=== PATIENT | male | born 1985 | race Caucasian/White ===

== ENCOUNTER → 2018-02-09 09:55 | Outpatient (CLI) | payer SELFPAY ==
[2018-02-09 10:42] LABS: T4 Free Direct 1.01 ng/dL (0.76-1.46); Thyroid Stim Hormone (TSH) 1.16 uIU/mL (0.358-3.74)
== END ==
PROVIDERS: Visit Provider Otolaryngology
DX: R22.1 Localized swelling, mass and lump, neck (principal)
CPT/HCPCS: 36415; 84439; 84443

== ENCOUNTER 2018-05-02 06:02 | Day surgery (SDC) | payer SELFPAY ==
[2018-04-28 10:04] LABS: Absolute Lymphocyte Count 1.77 X10^3/ul (0.83-4.51); Absolute Neutrophil Count 6.1 X10^3/uL (2.0-7.7); Basophil# 0.02 X10^3/uL; Basophil% 0.2 % (0-1); Eosinophils% 2.2 % (0-5); Hematocrit 44.2 % (40-54); Hemoglobin 15.4 g/dl (13.0-16.5); Lymphocyte # 1.77 X10^3/ul (4.0); Lymphocyte % 19.6 % (19-41); Mean Corp Hgb Conc 34.8 g/gl (32-36); Mean Corpuscular Hgb 30.3 pg (27.0-32.0); Mean Corpuscular Volume 86.8 fL (80-94); Mean Platelet Vol. 10.4 fl (6.2-12.0); Monocyte# 0.88 X10^3/uL; Monocyte% 9.7 % (0-10); Neutrophil # 6.14 X10^3/uL (2.7-7.7); Platelet Count 201 K/mm3 (150-450); RBC Distribution Width CV 12.2 % (11.6-14.6); RBC Distribution Width SD 38.3 fl (35.1-43.9); Red Blood Count 5.09 M/mm3 (4.6-6.2)
[2018-04-28 10:13] LABS: POSITIVE COUNT NO; POSITIVE DIFFERENTIAL NO; POSITIVE MORPHOLOGY NO
[2018-04-28 10:26] LABS: Anion Gap 4 (5-15); BUN 16 mg/dL (7-18); BUN/Creat Ratio 16.1 RATIO (10-20); Calcium,Total 8.7 mg/dL (8.5-10.1); Chloride 107 mmol/L (98-107); Creatinine, Serum 0.99 mg/dL (0.70-1.30); EST Glomerular Filtration Rate 93 mL/min (>60); Est Glom Filt Rate - Afr Amer 112 mL/min (>60); Glucose 88 mg/dL (74-106); Potassium 4.6 mmol/L (3.5-5.1); Sodium Level 139 mmol/L (136-145)
--- NOTE | 2018-05-02 | THYROID_PTH ---
PATIENT: ERWIN SURESH [place] [facility] [place][id number] AGE/SX: 32/M ROOM: RE05/02/[address]: Dr. Jesús Thao MD : 1985 BED: DIS: 05/02/2018 SPEC #: [id number] RECD: 05/02/18 14:33 STATUS: STEPHANIE MICKEY #: [id number] SILVIA: 05/02/18 00:[address]: Jesús Thao DEPT: SURGICAL PATHOLOGY RECD BY: Guy Day ENTERED: 05/02/18 14:33 SP TYPE: THYROID OTHR DR: No Primary Care Phys Tissues: Thyroid gland, NOS Procedures: Surgery Specimen Level V HEADER OPERATION: Thyroid lobectomy PRE-OP DIAGNOSIS: Right thyroid mass TISSUE SUBMITTED: Right thyroid lobe MICROSCOPIC DIAGNOSIS Right lobe of thyroid, lobectomy: Follicular adenoma with sclerosis. Background of colloid nodules. See comment. AM:he 05/11/18 COMMENT There is no definite evidence of capsular or lymphovascular invasion identified. This case was seen in consultation with Dr. Torres of [facility]. The case was peer reviewed at [facility]. Please see complete report in patient's EMR. Immunohistochemistry ([id number]) supports the above diagnosis. Case has been reviewed in consultation with Dr. Lancaster who concurs with the above diagnosis. IDC:SJ MICROSCOPIC DESCRIPTION Slides are reviewed. GROSS DESCRIPTION Received in fixative is one container labeled with the patient's name and designated right thyroid lobe. The specimen consists of a thyroid lobectomy specimen weighing 23 gm and measuring 5.5 x 3.5 x 3 cm. No external parathyroid tissue is identified. The resection margin appears to be ragged. The specimen is inked as follows: anterior surface - black, posterior surface - blue and resection margin - yellow. Serial sections reveal a multiloculated predominantly cystic and focal area of solid lesion in the superior middle portion of the thyroid lobe measuring 3 cm in diameter. Driller Hand sections are submitted in 12 cassettes as follows: 1-10 - entire lesion, 11-12 - senior customer service representative sections from the uninvolved portion. About 90% of the specimen is submitted. / JUAN M:he 05/03/18 TC:1 CPT: 33848
--- NOTE | 2018-05-02 | IMM_PTH ---
PATIENT: ERWIN SURESH LOC: [facility] – [place] U#:[id number] AGE/SX: 32/M ROOM: RE05/02/[address]: Dr. Jesús Thao MD : 1985 BED: DIS: 05/02/2018 SPEC #: [id number] RECD: 05/04/18 13:10 STATUS: STEPHANIE AREVALO #: [id number] SILVIA: 05/02/18 00:[address]: Jesús Thao DEPT: IMMUNOHISTOCHEMISTRY RECD BY: Telma Carvajal ENTERED: 05/04/18 13:12 SP TYPE: IMMUNO OTHR DR: No Primary Care Phys Tissues: Thyroid gland, NOS Procedures: HBME (initial) CD56 (add) CK19 (add) GAL-3 (add) HBME (add) TTF1 (add) PHYSICIAN & INSTITUTION [place] [id number] SPECIMEN INFORMATION: Tissue Source: Right thyroid lobe Clinical Info: Right thyroid mass Specimen Number: [id number] #4, 8, 9 & 10 CPT code: 17751, 62143 x19 METHODOLOGY: Deparaffinized sections of prefer/formalin-fixed tissue or PAP/DQ stained slides are incubated with monoclonal/polyclonal antibodies/oligonucleotide probes. Localization is made via biotin free immunoperoxidase method. Appropriate controls are performed and reacted as expected. Results on target cell population are indicated in the following table: RESULTS: ANTIBODY / CLONE RESULT Block 4 HBME1 (HBME-1) positive CK19 (A53-B/A2.26) negative GAL3 (9C4) negative CD56 (123C3.D5) positive TTF-1 (8G7G3/1) positive Block 8 HBME1 (HBME-1) positive CK19 (A53-B/A2.26) negative GAL3 (9C4) positive CD56 (123C3.D5) positive TTF-1 (8G7G3/1) positive Block 9 HBME1 (HBME-1) positive CK19 (A53-B/A2.26) negative GAL3 (9C4) negative CD56 (123C3.D5) positive TTF-1 (8G7G3/1) positive Block 10 HBME1 (HBME-1) positive CK19 (A53-B/A2.26) positive GAL3 (9C4) negative CD56 (123C3.D5) positive TTF-1 (8G7G3/1) positive These tests were developed and their performance characteristics determined by [facility]. They may not have been cleared or approved by the U.S. Food and Drug Administration. The FDA has determined that such clearance or approval is not necessary. INTERPRETATION: Right thyroid lobe, lobectomy: Consistent with follicular adenoma with sclerosis. AM:he 05/11/18 Case has been reviewed in consultation with Dr. Lancastre who concurs with the above diagnosis. IDC:JUAN M
[2018-05-02 06:33] VITALS: BP 115/67; PULSE 81; RESP 16; TEMP 36.9; O2SAT 98; BMI 25.9
[2018-05-02] MEDS: Mupirocin Ointment 22gm Tube 1 APPLIC (08:46)
--- NOTE | 2018-05-02 10:46 | DCINST_ITS ---
You will use the following diet at home:: No restrictions Your food should be the consistency of: Regular Discharge Activity: May not drive while taking narcotic pain medications. Call your doctor if your incision/area has: Sudden Increased Bleeding, Increased Pain/ Swelling Additional Dressing/Incision Instructions:: mupirocin to incision twice daily. record drain output Allergies/Adverse Reactions: Allergies No Known Allergies Allergy (Verified 04/25/18 10:08) Medications to take at Discharge Amoxicillin 875 mg PO BID #6 tab 05/02/18 Oxycodone HCl/Acetaminophen [Percocet 5/325] 1 tab PO Q6H PRN PRN 4 Days #12 tab 05/02/18 The following prescriptions were given: Oxycodone HCl/Acetaminophen [Percocet 5/325] 1 tab PO Q6H PRN PRN 4 Days #12 tab PRN Reason: Pain Amoxicillin 875 mg PO BID #6 tab Primary Care Physician: Care Physician,No Primary [Primary Care Provider] - Test Results: Test results from this visit will be discussed in further detail at your follow- up appointment, if applicable. Please Follow Up With: Henri Chairez MD When: tomorrow
[2018-05-02 10:56] VITALS: BP 101/61; BP 115/67; PULSE 80; RESP 16; TEMP 36.4; O2SAT 99
[2018-05-02 11:00] VITALS: BP 101/66; BP 115/67; PULSE 79; RESP 16; O2SAT 96
--- NOTE | 2018-05-02 11:07 | PCM.OPRPT ---
Problem List (1) Thyroid mass Status: Chronic Report of Operation Date of Procedure: 05/02/18 Pre-Operative Diagnosis: right thyroid mass Post-Operative Diagnosis: right thyroid mass Surgery/Procedure Performed:: total thyroid lobectomy with ithsmusectomy, right Type of Anesthesia:: General Description of Procedure: on the day of the procedure, after appropriate informed consent was obtained, the patient was brought to the operating room and placed in supine position on the operating table. he was placed under general endotracheal anesthesia by the anesthesiologist. the eyes were taped. a shoulder roll was placed and the glide scope was used to confirm correct NIM tube placement. the neck was injected with lidocaine/epinephrine, and prepped and draped in sterile fashion. a #15 blade was used to make an incision transversely over the right low neck. the platysma was divided. the infrahyoid strap muscles were divided along their midline raphe. the superficial then deep straps were dissected off of the thyroid gland. the inferior pole was exposed. a lawson dissector was used to locate the recurrent laryngeal nerve. once this was located, the inferior pedicle was divided with the ligasure. the fascia of the gland was released laterally and the middle thyroid vein was divided with the ligasure. the superior pole was retracted inferomedially and the superior pedicle was divided with the ligasure. attention was then taken to trace the recurrent laryngeal nerve with the lawson. this was traced into the larynx. the inferior parathyroid was found and preserved. the anterior and posterior branches were seen entering the larynx. the remainder of the gland was dissected off of the airway and the isthmus was divided with the bovie. the nerve was stimulated and found to be intact. a valsalva was held by anesthesia and hemostasis was observed. a 15 syrian NUBIA drain was placed and sutured to the skin. the platysma and dermis were closed with 3-0 vicryl. the superficial skin was closed with 5-0 prolene. the patient was awoken from anesthesia and transferred to the PACU in stable condition.
[2018-05-02 11:15] VITALS: BP 115/67; BP 99/67; PULSE 75; RESP 16; O2SAT 96
--- NOTE | 2018-05-02 11:16 | OP.PCM_ITS ---
Problem List (1) Thyroid mass Status: Chronic Report of Operation Date of Procedure: 05/02/18 Pre-Operative Diagnosis: right thyroid mass Post-Operative Diagnosis: right thyroid mass Surgery/Procedure Performed:: total thyroid lobectomy with ithsmusectomy, right Type of Anesthesia:: General Description of Procedure: on the day of the procedure, after appropriate informed consent was obtained, the patient was brought to the operating room and placed in supine position on the operating table. he was placed under general endotracheal anesthesia by the anesthesiologist. the eyes were taped. a shoulder roll was placed and the glide scope was used to confirm correct NIM tube placement. the neck was injected with lidocaine/epinephrine, and prepped and draped in sterile fashion. a #15 blade was used to make an incision transversely over the right low neck. the platysma was divided. the infrahyoid strap muscles were divided along their midline raphe. the superficial then deep straps were dissected off of the thyroid gland. the inferior pole was exposed. a lawson dissector was used to locate the recurrent laryngeal nerve. once this was located, the inferior pedicle was divided with the ligasure. the fascia of the gland was released laterally and the middle thyroid vein was divided with the ligasure. the superior pole was retracted inferomedially and the superior pedicle was divided with the ligasure. attention was then taken to trace the recurrent laryngeal nerve with the lawson. this was traced into the larynx. the inferior parathy roid was found and preserved. the anterior and posterior branches were seen entering the larynx. the remainder of the gland was dissected off of the airway and the isthmus was divided with the bovie. the nerve was stimulated and found to be intact. a valsalva was held by anesthesia and hemostasis was observed. a 15 english NUBIA drain was placed and sutured to the skin. the platysma and dermis were closed with 3-0 vicryl. the superficial skin was closed with 5-0 prolene. the patient was awoken from anesthesia and transferred to the PACU in stable condition.
[2018-05-02 11:26] VITALS: BP 115/67; BP 97/67; PULSE 76; RESP 16; TEMP 36.9; O2SAT 97
[2018-05-02 13:07] VITALS: BP 108/73; BP 115/67; PULSE 70; RESP 16; TEMP 36.9; O2SAT 98
== END 2018-05-02 13:13 | disposition home or self-care (01) ==
LOC: SDC 06:02 → AC 06:02
PROVIDERS: Anesthesiology; Referring Provider Otolaryngology; Visit Provider Otolaryngology
PROC: (CPT 60225; principal; 2018-05-02 07:10)
DX: D34 Benign neoplasm of thyroid gland (principal); Z86.73 Personal history of transient ischemic attack (TIA), and cerebral infarction without residual deficits
CPT/HCPCS: 60225; 36415; 80048; 85025; 88307; 88341; 88342; 93005; J7120